=== PATIENT | male | born 1965 | race Caucasian/White ===

== ENCOUNTER → 2020-07-10 | Outpatient (CLI) | payer MEDICARE, OTHER | LOC: HEART 5 10:47 | DX: J44.9 Chronic obstructive pulmonary disease, unspecified (principal); M19.90 Unspecified osteoarthritis, unspecified site; M05.10 Rheumatoid lung disease with rheumatoid arthritis of unspecified site; J60 Coalworker's pneumoconiosis | CPT/HCPCS: 71046; 94010; 94729 ==

== ENCOUNTER 2021-11-03 08:44 | Emergency (ER) | payer OTHER, MEDICARE ==
[2021-11-03 09:56] LABS: HEMOGLOBIN 12.5 gm/dl (14.0-17.5); RED BLOOD COUNT 3.85 M/UL (4.20-5.50); WHITE BLOOD COUNT 14.1 K/UL (4.5-11.0)
[2021-11-03 10:28] LABS: BUN/CREATININE RATIO 13 (0-10)
[2021-11-03] MEDS ORDERED: DOXYCYCLINE HY100 MG PO (13:08)
== END 2021-11-03 13:19 | disposition home or self-care (01) ==
LOC: ER1 08:44
PROVIDERS: Emergency Medicine
DX: R04.2 Hemoptysis (principal); F17.200 Nicotine dependence, unspecified, uncomplicated; Z87.39 Personal history of other diseases of the musculoskeletal system and connective tissue; Z87.09 Personal history of other diseases of the respiratory system
CPT/HCPCS: 80053; 82550; 82553; 83880; 84484; 85025; 85610; 85730; 99284; Q9967